=== PATIENT | female | born 1975 | race Caucasian/White ===

== ENCOUNTER 2019-02-16 16:43 | Emergency (ER) | payer BC, SELFPAY ==
[2019-02-16 16:53] VITALS: BP 97/56; PULSE 58; RESP 16; TEMP 36.7; O2SAT 100
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
--- NOTE | 2019-02-16 18:20 | NUR.NOTE ---
Pt amb to BR with assist. Nursing Note:
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
--- NOTE | 2019-02-16 19:12 | DI.CT_ITS ---
SYMPTOM/DIAGNOSIS: DIZZINESS AFTER FALL, LANDED ON HEAD AND SHOULDER CHEST CT: CT scan of the chest was performed following the uneventful administration of intravenous contrast material. The thoracic aorta is intact and of normal caliber. Heart size is within normal limits. No significant pericardial effusion is seen. No evidence of thoracic adenopathy, pleural effusion or pneumothorax is identified. The lungs are clear. The tracheobronchial tree is unremarkable. There is a minimally displaced fracture involving the spine of the left scapula. No other fracture is identified. IMPRESSION: 1. Minimally displaced fracture involving the spine of the left scapula. 2. No other acute pulmonary process.
[2019-02-16] MEDS: Acetaminophen 500 MG TAB 1000 MG PO (19:16)
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
[2019-02-16 19:55] LABS: Abs Immature Grans 0.03 k/cumm (0.0-0.09); Absolute Basophil Count 0.02 k/cumm (0.0-0.2); Absolute Eosinophil Count 0.03 k/cumm (0.0-0.7); Absolute Lymphocyte Count 0.74 k/cumm (1.2-3.4); Absolute Neutrophil Count 14.36 k/cumm (1.2-6.7); Basophils % 0.1; Eosinophils % 0.2; HCT 38.8 % (36.0-46.0); HGB 13.2 g/dL (12.0-15.5); Immature Grans % 0.2; Lymphocytes % 4.7; Mean Corpuscular Hemoglobin 31.6 pg (27.0-33.0); Mean Corpuscular Volume 92.8 fL (80-95); Mean Platelet Volume 10.4 fL (8.0-11.0); Neutrophils % 90.8; Platelet Count 255 x1000/uL (130-400); RBC 4.18 m/cumm (4.00-5.20); RBC Distribution Width 12.1 % (11.7-14.6); White Blood Cell Count 15.82 k/cumm (4.4-10.8)
[2019-02-16 20:00] LABS: Absolute Monocyte Count 0.63 k/cumm (0.11-0.7)
[2019-02-16 20:14] LABS: ALT 23 U/L (12-78); AST 11 U/L (15-37); Albumin 3.9 g/dL (3.4-5.0); Alkaline Phosphatase 47 U/L (46-116); Anion Gap 12.1 mmol/L (3-11); BUN 20 mg/dL (7-18); Bilirubin, Total 0.6 mg/dL (0.2-1.0); CO2 23.9 mmol/L (21.0-32.0); CREATININE 0.79 mg/dL (0.55-1.02); Calcium 8.9 mg/dL (8.5-10.1); Chloride 101 mmol/L (98-107); Glucose 131 mg/dL (70-100); Potassium 3.4 mmol/L (3.5-5.1); Sodium 137 mmol/L (136-145); Total Protein 7.1 g/dL (6.4-8.2)
[2019-02-16] MEDS: Omnipaque 350 MG/ML 100 ML BTL IV (20:19)
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
[2019-02-16] MEDS: Normal Saline 1,000 ML 1000 ML IV (20:35)
[2019-02-16 20:36] VITALS: BP 103/53; PULSE 70; RESP 18; O2SAT 98
[2019-02-16] MEDS: Ibuprofen 600 MG TAB (21:15)
== END 2019-02-16 21:25 | disposition home or self-care (01) ==
PROVIDERS: Emergency Provider Physician Assistant Medical
DX: S42.192A Fracture of other part of scapula, left shoulder, initial encounter for closed fracture (principal); S09.90XA Unspecified injury of head, initial encounter; V17.0XXA Pedal cycle driver injured in collision with fixed or stationary object in nontraffic accident, initial encounter
CPT/HCPCS: 36415; 80053; 96361; 96374; 99285; 70450; 71046; 71260; 72125; 73030; 85025; 99284; J3490; L3670

== ENCOUNTER 2019-02-23 11:29 | Outpatient (CLI) | payer BC, SELFPAY ==
--- NOTE | 2019-02-23 08:55 | DI.RAD_ITS ---
SYMPTOM/DIAGNOSIS: SCAPULA FX LEFT SHOULDER: Four views. Comparison 02/16/19 There is again seen a fracture through the left scapular spine. There does appear to be mild widening of the fracture. This may be due to patient positioning. No new fractures or dislocations are seen.
== END 2019-02-23 11:49 ==
PROVIDERS: Visit Provider Student in an Organized Health Care Education/Training Program
DX: S42.192D Fracture of other part of scapula, left shoulder, subsequent encounter for fracture with routine healing (principal)
CPT/HCPCS: 73030